=== PATIENT | female | born 1945 | race Caucasian/White ===

== ENCOUNTER 2017-07-16 06:37 | Day surgery (SDC) | payer MEDICARE, OTHER ==
[2017-07-09 19:41] LABS: BASOPHILS 0.5 %; BASOPHILS ABSOLUTE 0.03 10/3/uL (0.0-0.16); EOSINOPHILS 0.4 %; EOSINOPHILS ABSOLUTE 0.02 10/3/uL (0.0-0.53); HEMATOCRIT 37.2 % (36.0-48.0); HEMOGLOBIN 11.3 g/dL (12.0-16.0); LYMPHOCYTES ABSOLUTE 1.35 10/3/uL (0.67-4.30); MEAN CORPUS HGB CONC 30.4 g/dL (32.0-36.0); MEAN CORPUSCULAR HEMOGLOB 24.8 pg (26.0-34.0); MEAN CORPUSCULAR VOLUME 81.8 fL (80-100); MEAN PLATELET VOLUME 11.1 fL (9.2-13.0); MONOCYTES 7.6 %; MONOCYTES ABSOLUTE 0.43 10/3/uL (0.21-1.20); NEUTROPHILS 67.5 %; PLATELET COUNT 296 10/3/uL (150-400); RBC DISTRIBUTION WIDTH 18.5 % (12.0-16.0); RED CELL COUNT 4.55 10/6/uL (4.0-5.6); WHITE BLOOD CELLS 5.6 10/3/uL (4.5-10.5)
[2017-07-09 19:43] LABS: MANUAL DIFF NO %
[2017-07-09 19:48] LABS: PARTIAL THROMBO TIME 35.9 SEC (22.5-37.2); PROTIME (NOT ORD) 13.3 SEC (12.0-14.5)
[2017-07-09 19:54] LABS: BUN (BLOOD UREA NITROGEN) 14 MG/DL (6-23); CALCIUM, SERUM 8.9 MG/DL (8.5-10.4); CHLORIDE, SERUM 103 MMOL/L (96-112); CO2 (CARBON DIOXIDE) 32 MMOL/L (24-34); GFR AFRICAN AMERICAN 108 ML/MIN (>=60); GFR NON AFRICAN AMERICAN 93 ML/MIN (>=60); GLUCOSE, SERUM 82 MG/DL (60-99); POTASSIUM, SERUM 4.6 MMOL/L (3.5-5.3); SODIUM, SERUM 141 MMOL/L (135-148)
[~2017-07-16] VITALS: Ht 175.3 cm; Wt 49.0 kg
--- NOTE | ~2017-07-16 | OP ---
Record Of Operation [facility] [address] [place]. [address] NAME: TONY FALCON : 49 STATUS : [facility]#: [id number] AGE: 71 ADM/REG DATE : 07/16/17 MR#: [id number] REPORT SERV DATE: 07/16/17 DICTATED BY: JOSE PAZ DATE: 07/16/17 REPORT STATUS : Draft TRANSCRIBED BY: MODL DATE: 07/16/17 DATE OF PROCEDURE: 07/16/2017 PREOPERATIVE DIAGNOSIS: Bilateral renal calculi. POSTOPERATIVE DIAGNOSES: Bilateral renal calculi plus urethral stricture. PROCEDURES PERFORMED: 1. Urethral dilation. 2. Cystoscopy. 3. Bilateral retrograde pyelogram. 4. Bilateral flexible ureterorenoscopy with holmium laser stone fragmentation of bilateral renal calculi and bilateral ureteral stent placement. ANESTHESIA: General. ESTIMATED BLOOD LOSS: 5 mL. INDICATIONS: This is a 71-year-old white female, recently presented to the office with hematuria and CT evidence of bilateral renal pelvic calculi each measuring about 1.4 cm in size, a second but left renal stone was noted as well. She also has chronic voiding dysfunction. We are planning endoscopic management of the stones bilaterally. Risks of infection, bleeding, failure, need for further surgery, prolonged stenting, etc., were reviewed. PROCEDURE IN DETAIL: The patient was taken to the operating room and underwent a general anesthetic. She was placed in the lithotomy position on the table, and her external genitalia were sterilely prepped and draped. I attempted to insert the 22-Malaysian cystoscope sheath and could not place it per urethra secondary to a very tight urethra. The urethra was dilated from 18-28 Malaysian using female sounds. The 22-Malaysian cystoscope sheath was then successfully inserted into the bladder. The bladder was inspected. There were no mucosal lesions noted. There were no masses or stones either. There was a moderate cystocele. The bladder was fairly heavily trabeculated and distinctly abnormal in that regard. A left retrograde pyelogram was obtained showing a somewhat dilated ureter down to the left UVJ. The renal collecting system was perhaps mildly dilated. There was a filling defect corresponding to the known stone in the renal pelvis. An 0.038 guidewire was advanced up into the collecting system of the kidney under fluoroscopic guidance, and a 9.5/11-Malaysian ureteral access sheath was used, was advanced over the guidewire up into the proximal ureter. A second guidewire was placed through the access sheath and advanced into the kidney, and the sheath and obturator were reinserted over one of the two guidewires leaving the other in place as a safety wire. The flexible ureteroscope was then advanced up through the access sheath and into the proximal ureter and on up into the kidney. The collecting system was systematically inspected. There was a large yellowish multifaceted stone free floating in the renal pelvis. There was a second somewhat smaller stone measuring about 6 mm or so in the lower pole calyx. The 200 micron laser fiber was used to first fragment the lower pole calyceal stone into multiple small pieces. Then, the large renal pelvic stone Record Of [place] [id number] [facility] [place]. [address] NAME: TONY FALCON : 49 STATUS : [facility] PAT#: [id number] AGE: 71 ADM/REG DATE : 07/16/17 MR#: [id number] REPORT SERV DATE: 07/16/17 DICTATED BY: JOSE PAZ DATE: 07/16/17 REPORT STATUS : Draft TRANSCRIBED BY: SEBASTIEN DATE: 07/16/17 was fragmented into multiple small pieces as well using the laser. The stone fortunately fragmented very easily. When I was satisfied that all the pieces were down in the 1 to 2 mm range, the ureteroscope was withdrawn from the kidney and the ureter was completely inspected with no significant findings noted. The cystoscope was replaced over the remaining guidewire and a 6-Malaysian x 28 cm [place] stent was advanced over the guidewire such that the proximal end of the stent was observed to coil in the pelvis of the kidney under fluoroscopic guidance and the distal end of the stent was visually observed to coil in the bladder following removal of the guidewire. A right retrograde pyelogram was then obtained showing again a mildly dilated ureter down to the UVJ, a mildly dilated renal collecting system. There was a mobile filling defect in the renal pelvis. An 0.038 guidewire was advanced up into the kidney under fluoroscopic guidance and a 9.5-Malaysian access sheath with obturator was then inserted over the guidewire and advanced up into the mid ureter. A second guidewire was advanced up into the kidney again under fluoroscopic guidance, and the sheath and obturator were reinserted over one of the two guidewires leaving the safety wire in place. The flexible ureteroscope was then advanced through the access sheath and on up into the mid ureter and advanced into the kidney without difficulty. No ureteral abnormalities were noted. The renal collecting system was systematically inspected, and there was a large multifaceted yellow stone free floating in the renal pelvis again measuring about 1.3 cm or so. The holmium laser fiber was used to fragment the stone again into small pieces, and once I was satisfied that the pieces were roughly in the 1 to 2 mm range, the flexible ureteroscope was withdrawn down through the ureter with no significant ureteral findings noted. The cystoscope was replaced over the guidewire and a 6-Malaysian x 28 cm [place] stent was advanced over the guidewire such that the proximal end of the stent was observed to coil in the pelvis of the kidney under fluoroscopic guidance and the distal end of the stent was visually observed to coil in the bladder following removal of the guidewire. At that point, the bladder was drained and the cystoscope was removed. The urethra was inspected and other than being inflamed, no specific abnormality was seen there. The patient tolerated the procedure well and was taken to recovery in stable condition. DS/EMBERL Jose Paz M.D. / [id number] CC: Colten Lyon JR., PAUL G
[~2017-07-16 06:37] MED LIST: *DENIES
== END 2017-07-16 13:14 | disposition home or self-care (01) ==
LOC: SDC 06:37
PROVIDERS: Urology
PROC: 0TC48ZZ Extirpation of Matter from Left Kidney Pelvis, Via Natural or Artificial Opening Endoscopic (ICD-10-PCS; 2017-07-16)
PROC: 0TC38ZZ Extirpation of Matter from Right Kidney Pelvis, Via Natural or Artificial Opening Endoscopic (ICD-10-PCS; 2017-07-16)
PROC: BT141ZZ Fluoroscopy of Kidneys, Ureters and Bladder using Low Osmolar Contrast (ICD-10-PCS; 2017-07-16)
PROC: 0T7D7ZZ Dilation of Urethra, Via Natural or Artificial Opening (ICD-10-PCS; 2017-07-16)
PROC: 0T788DZ Dilation of Bilateral Ureters with Intraluminal Device, Via Natural or Artificial Opening Endoscopic (ICD-10-PCS; principal; 2017-07-16 08:45)
DX: N20.0 Calculus of kidney (principal); N35.9 Urethral stricture, unspecified; N81.10 Cystocele, unspecified; N32.89 Other specified disorders of bladder; J45.909 Unspecified asthma, uncomplicated; R94.31 Abnormal electrocardiogram [ECG] [EKG]; Z87.442 Personal history of urinary calculi; Z87.891 Personal history of nicotine dependence; Z90.710 Acquired absence of both cervix and uterus
CPT/HCPCS: 36415; 71020; 74420; 80048; 85025; 85610; 85730; 93005; C1894; C2617; J2250; J2370; J2405; J2710; J3010; Q9967